=== PATIENT | male | born 1960 | race Caucasian/White ===

== ENCOUNTER → 2019-07-01 | Outpatient (CLI) | payer BC ==
[~2019-07-01] MED LIST: ADVAIR HFA 230M12 GM INH; CARDURA4 MG PO; CORTEF10 MG PO; FLEXERIL PO; NEXIUM40 MG PO; ROBITUSSIN100 MG/53 PO; SINGULAIR 10 MG10 MG PO; UNICOMPLEX M TA1 TA1 PO; VENTOLIN HFA 1818 GM INH; VITAMIN D2000 UNIT PO; VITAMINC500 PO; XOLAIR150 MG SUBQ
[2019-07-01 14:55] VITALS: BP 150/85
[2019-07-01 15:28] VITALS: BP 152/80
== END ==
LOC: M.INFUS 14:00
DX: J45.40 Moderate persistent asthma, uncomplicated (principal); L50.8 Other urticaria